=== PATIENT | male | born 1955 | race Caucasian/White ===

== ENCOUNTER → 2017-12-04 14:01 | Outpatient (CLI) | payer SELFPAY ==
--- NOTE | 2017-12-04 14:19 | XR_ITS ---
XR hip RT 2-3V w/pelvis HISTORY: ITS.REASON: RT HIP PAIN ORDERING PHYSICIAN: Belkys Forte PATIENT AGE: 62 years COMPARISON: None FINDINGS: No fracture or dislocation. No lytic or blastic change. There are minimal osteoarthritic changes of the hips with slight decrease in the joint space medially and minimal osteophyte formation of the lower acetabulum. IMPRESSION: Minimal osteoarthritis of the hips otherwise negative
--- NOTE | 2017-12-04 14:19 | XR_ITS ---
XR chest 2V HISTORY: ITS.REASON: SCREENING LUNG CANCER ORDERING PHYSICIAN: Belkys Forte PATIENT AGE: 62 years COMPARISON: None FINDINGS: There has been a prior CABG. Normal heart size. There is prominence of the interstitium in the lung bases greater on the right. No obvious lobar consolidation or collapse. No large pulmonary nodules are evident. Small pulmonary nodules may not be seen radiographically area consider screening chest CT for more thorough evaluation. No acute bony anomalies. IMPRESSION: Mild prominence of the interstitium, prior CABG.
== END ==
PROVIDERS: PCP Nurse Practitioner Family; Visit Provider Nurse Practitioner Family
DX: M25.551 Pain in right hip (principal); Z12.2 Encounter for screening for malignant neoplasm of respiratory organs
CPT/HCPCS: 71046; 73502

== ENCOUNTER → 2017-12-12 11:48 | Outpatient (CLI) | payer SELFPAY ==
--- NOTE | 2017-12-12 11:52 | XR_ITS ---
EXAM: XR lumbar spine min 4V HISTORY: ITS.REASON: ACUTE MIDLINE LBP WITH RT SCIATICA ORDERING PHYSICIAN: Belkys Forte PATIENT AGE: 62 years COMPARISON: None FINDINGS: Normal alignment. No fracture or dislocation. No lytic or blastic change. There is mild degenerative disc disease at L4-L5 with moderate to severe degenerative disc disease at L5-S1 with 4 mm anterolisthesis of L5 on S1. Endplate osteophytes are present at L4 and L5. Incidental note is made of a 6 mm stone overlying the lower pole the right kidney. Vascular calcification is also present. IMPRESSION: 1. Degenerative disc disease at L4-5 and L5-S1 as described above. 2. Right nephrolithiasis
== END ==
PROVIDERS: PCP Nurse Practitioner Family; Visit Provider Nurse Practitioner Family
DX: M54.41 Lumbago with sciatica, right side (principal)
CPT/HCPCS: 72110

== ENCOUNTER → 2017-12-21 10:15 | Outpatient (CLI) | payer SELFPAY | PROVIDERS: PCP Nurse Practitioner Family; Visit Provider Nurse Practitioner Family | DX: M51.36 Other intervertebral disc degeneration, lumbar region (principal); M43.10 Spondylolisthesis, site unspecified ==

== ENCOUNTER → 2017-12-25 09:56 | Outpatient (CLI) | payer SELFPAY ==
--- NOTE | 2017-12-25 09:59 | MR_ITS ---
MR lumbar spine wo con, MR 3-d myelogram/MRCP HISTORY: Patient states low back pain, RT hip and leg pain X 2-3 months. Some numbness at times. Pain has been severe 2-3 weeks. ITS.REASON: LUMBAR DDD, ANTEROLISTHESIS ORDERING PHYSICIAN: Belkys Forte PATIENT AGE: 62 years Comparison: X-RAY 12/12/17. RT hip X-RAY 12/04/17. TECHNIQUE: Standard multiplanar multiecho sequences are performed without contrast. 3-D MIP and myelographic images are also rendered and reviewed FINDINGS: The spinal cord ends at the L1 level. T11-T12, T12-L1, L1-L2 have an unremarkable appearance. L2-L3: Mild facet and ligamentum flavum hypertrophic change. Bulging disc anteriorly with anterior osteophytes. Small Schmorl's node along the superior endplate of L3 L3-L4: Mild facet and ligamentum flavum hypertrophy. L4-5: There is a small right paracentral disc herniation with superior extrusion. This is compressing upon the right L5 nerve root and causing right lateral recess narrowing. There is [id number] bilateral foraminal narrowing from facet hypertrophic change. L5-S1: Severe degenerative disc disease with 9 mm spondylolytic spondylolisthesis of L5 on S1 with moderate sized concentric bulging disc and severe bilateral foraminal narrowing. There is minimal central disc protrusion. IMPRESSION: 1. Small right paracentral disc herniation at L4-L5 with superior extrusion. This is compressing upon the right L5 nerve root and causing right lateral recess narrowing. There is [id number] bilateral foraminal narrowing from facet hypertrophic change 2. Severe degenerative disc disease L5-S1 with 9 mm spondylolytic spondylolisthesis of L5 on S1 with moderate sized concentric bulging disc and severe bilateral foraminal narrowing. There is minimal central disc protrusion.
--- NOTE | 2017-12-25 10:00 | MR_ITS ---
MR lumbar spine wo con, MR 3-d myelogram/MRCP HISTORY: Patient states low back pain, RT hip and leg pain X 2-3 months. Some numbness at times. Pain has been severe 2-3 weeks. ITS.REASON: LUMBAR DDD, ANTEROLISTHESIS ORDERING PHYSICIAN: Belkys Forte PATIENT AGE: 62 years Comparison: X-RAY 12/12/17. RT hip X-RAY 12/04/17. TECHNIQUE: Standard multiplanar multiecho sequences are performed without contrast. 3-D MIP and myelographic images are also rendered and reviewed FINDINGS: The spinal cord ends at the L1 level. T11-T12, T12-L1, L1-L2 have an unremarkable appearance. L2-L3: Mild facet and ligamentum flavum hypertrophic change. Bulging disc anteriorly with anterior osteophytes. Small Schmorl's node along the superior endplate of L3 L3-L4: Mild facet and ligamentum flavum hypertrophy. L4-5: There is a small right paracentral disc herniation with superior extrusion. This is compressing upon the right L5 nerve root and causing right lateral recess narrowing. There is [id number] bilateral foraminal narrowing from facet hypertrophic change. L5-S1: Severe degenerative disc disease with 9 mm spondylolytic spondylolisthesis of L5 on S1 with moderate sized concentric bulging disc and severe bilateral foraminal narrowing. There is minimal central disc protrusion. IMPRESSION: 1. Small right paracentral disc herniation at L4-L5 with superior extrusion. This is compressing upon the right L5 nerve root and causing right lateral recess narrowing. There is [id number] bilateral foraminal narrowing from facet hypertrophic change 2. Severe degenerative disc disease L5-S1 with 9 mm spondylolytic spondylolisthesis of L5 on S1 with moderate sized concentric bulging disc and severe bilateral foraminal narrowing. There is minimal central disc protrusion.
== END ==
PROVIDERS: PCP Nurse Practitioner Family; Visit Provider Nurse Practitioner Family
DX: M51.36 Other intervertebral disc degeneration, lumbar region (principal); M43.10 Spondylolisthesis, site unspecified
CPT/HCPCS: 72148; 76376

== ENCOUNTER → 2020-06-30 09:49 | Outpatient (CLI) | payer SELFPAY ==
[2020-06-30 10:15] VITALS: PULSE 75; PULSE 78
== END ==
PROVIDERS: PCP Nurse Practitioner Family; Visit Provider Nurse Practitioner Family
DX: J44.9 Chronic obstructive pulmonary disease, unspecified (principal)
CPT/HCPCS: 94060; 94640